=== PATIENT | female | born 1955 | race Caucasian/White ===

== ENCOUNTER → 2020-01-01 15:07 | Outpatient (BNVA) | payer OTHER, SELFPAY | PROVIDERS: PCP Internal Medicine; Visit Provider Anesthesiology | DX: G89.0 Central pain syndrome (principal); I69.398 Other sequelae of cerebral infarction; R25.2 Cramp and spasm | CPT/HCPCS: 99202 ==

== ENCOUNTER 2020-01-10 12:57 | Outpatient (RCR) | payer OTHER, SELFPAY | END 2020-01-10 23:55 | disposition home or self-care (01) | LOC: HO.PAOS 12:57 | PROVIDERS: Referring Provider Anesthesiology; Visit Provider Counselor Mental Health | DX: F33.2 Major depressive disorder, recurrent severe without psychotic features (principal) | CPT/HCPCS: 90791 ==

== ENCOUNTER → 2020-02-17 08:24 | Outpatient (BNVA) | payer OTHER, SELFPAY | PROVIDERS: PCP Internal Medicine; Visit Provider Anesthesiology | DX: I69.398 Other sequelae of cerebral infarction (principal); R25.2 Cramp and spasm; G89.0 Central pain syndrome | CPT/HCPCS: 99212 ==

== ENCOUNTER → 2020-05-06 11:41 | Outpatient (BNVA) | payer OTHER, SELFPAY | PROVIDERS: PCP Internal Medicine; Visit Provider Anesthesiology | DX: I69.30 Unspecified sequelae of cerebral infarction (principal); I69.398 Other sequelae of cerebral infarction; R25.2 Cramp and spasm; G89.0 Central pain syndrome; Z79.899 Other long term (current) drug therapy | CPT/HCPCS: 99212 ==

== ENCOUNTER 2020-05-19 06:27 | Outpatient (REF) | payer OTHER, SELFPAY ==
--- NOTE | ~2020-05-19 | FL_ITS ---
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 TECHNIQUE: Fluoroscopy performed by Kymberly Neely NP. Fluoroscopy time: 0.2 minutes DAP: 2.13 Gycm2 Images: 2 FINDINGS: There is interlaminar spinal needle at L2-L3. There is mild curvature lumbar spine and multilevel degenerative disc changes with associated vertebral spurring. FL/FL guidance in treatment room IMPRESSION: Fluoroscopy for pain management procedure.
== END 2020-05-19 06:28 | disposition home or self-care (01) ==
LOC: HO.RADIR 06:27
PROVIDERS: Visit Provider Anesthesiology
DX: G89.0 Central pain syndrome (principal); I69.30 Unspecified sequelae of cerebral infarction; R25.2 Cramp and spasm
CPT/HCPCS: 62323; Q9967

== ENCOUNTER → 2020-05-27 10:45 | Outpatient (BNVA) | payer OTHER, SELFPAY | PROVIDERS: PCP Internal Medicine; Visit Provider Anesthesiology | DX: I69.398 Other sequelae of cerebral infarction (principal); R25.2 Cramp and spasm; G89.0 Central pain syndrome | CPT/HCPCS: 99212 ==

== ENCOUNTER 2020-08-18 05:47 | Outpatient (REF) | payer OTHER, SELFPAY ==
--- NOTE | ~2020-08-18 | FL_ITS ---
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 Fluoroscopy time: 0.1 minutes DAP: 2.92 Gycm2 Images: 2 FINDINGS: There is spinal needle overlying the mid lumbar spinal canal at interlaminar L2-L3 approach. There are degenerative changes lumbar spine with variable disc narrowing and vertebral spurring and mild dextrocurvature. Normal lumbar lordosis. FL/FL guidance in treatment room IMPRESSION: Fluoroscopy for pain management procedures.
== END 2020-08-18 05:48 | disposition home or self-care (01) ==
LOC: HO.RADIR 05:47
PROVIDERS: Visit Provider Anesthesiology
DX: I69.398 Other sequelae of cerebral infarction (principal); R25.2 Cramp and spasm; G89.0 Central pain syndrome
CPT/HCPCS: 62323; J2270; Q9967

== ENCOUNTER → 2020-08-25 11:48 | Outpatient (BNVA) | payer OTHER, SELFPAY | PROVIDERS: PCP Internal Medicine; Visit Provider Nurse Practitioner Family ==

== ENCOUNTER 2020-10-20 06:24 | Outpatient (REF) | payer OTHER, SELFPAY ==
--- NOTE | ~2020-10-20 | FL_ITS ---
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 Jose Maddox. Fluoroscopy time: 0.3 minutes DAP: 5.04 Gycm2 Images: 2 FINDINGS: There is an interlaminar spinal needle at level L1-L2. There is dextrocurvature lumbar spine. Multilevel degenerative disc changes are present along with vertebral body spurring. Normal lumbar lordosis. FL/FL guidance in treatment room IMPRESSION: Fluoroscopy for pain management procedure.
== END 2020-10-20 06:25 | disposition home or self-care (01) ==
LOC: HO.RADIR 06:24
PROVIDERS: Visit Provider Anesthesiology
DX: G89.0 Central pain syndrome (principal); I69.398 Other sequelae of cerebral infarction; R25.2 Cramp and spasm
CPT/HCPCS: 62323; J1170; Q9967

== ENCOUNTER → 2020-10-29 09:42 | Outpatient (BNVA) | payer OTHER, SELFPAY | PROVIDERS: Visit Provider Anesthesiology | DX: I69.30 Unspecified sequelae of cerebral infarction (principal); I69.398 Other sequelae of cerebral infarction; R25.2 Cramp and spasm; G89.0 Central pain syndrome; G89.4 Chronic pain syndrome | CPT/HCPCS: 99212 ==